=== PATIENT | female | born 1945 | race Caucasian/White ===

== ENCOUNTER 2016-09-19 15:59 | Emergency (ER) | payer SELFPAY ==
--- NOTE | ~2016-09-19 | CR63 ---
[facility] A Service of [facility] & [facility] RADIOLOGY TEXT RESULTS PATIENT: CON ALANIZ LOCATION: CFTX : 44 UNIT #: [id number] AGE: [address]: JUANITA MARTÍNEZ SEX: F ORDER DR: [id number] [facility] [address] [place], [place] [address] [id number] E MR#: [id number] Acc #: [id number] NAME: CON ALANIZ. : 1945 SEX: F STUDY DATE/TIME: 09/19/2016 17:36 UNIT: [facility] ROOM: STUDY DESCRIPTION: CR Chest 2 View Attending Physician: Juanita Martínez Aprn Ordering Physician: Juanita Martínez Aprn Primary Care Physician: Carrillo Salomon Aprn MEDICAL IMAGING REPORT This report is preliminary unless electronic signature is present EXAM Two views of the chest COMPARISON March 05, 2015, March 27, 2015 and July 10, [address] chest dated July 26, 2009. Portable chest dated July 25, 2009 as well as the lateral chest dated December 18, 2008. INDICATIONS 71-year-old female with right-sided chest pain and dyspnea since falling on August 18, 2016. FINDINGS Cardiomediastinal silhouette is stable. No evidence of pneumothorax, pleural effusion or acute airspace disease. There is minimal plate-like atelectasis in the left lung base. There is diffuse spondylosis of the thoracic spine. Multiple healed right-sided rib fractures are noted. These appear stable from March 2015. At the level of the tenth right lateral rib, there is questionable step off and a subacute fracture cannot be excluded. There is minimal blunting of the right costophrenic sulcus on the frontal view which does not persist on the lateral view. This may represent minimal trace pleural fluid, perhaps due to recent rib fracture. Large hiatal hernia is again noted, which is noted to displace the descending aorta posteriorly, better appreciated on CT of July 2009. IMPRESSION 1. Multiple healed right-sided rib fractures. There is question of acute or subacute fracture of the tenth right lateral rib near the level of the diaphragm. There is minimal increased blunting of the costophrenic sulcus in this location which may represent trace pleural fluid and/or atelectasis. There is minimal band-like atelectasis in the left lower lobe. [facility] A Service of [facility] RADIOLOGY TEXT RESULTS PATIENT: CON ALANIZ LOCATION: CFTX : 44 UNIT #: [id number] AGE: [address]: JUANITA MARTÍNEZ SEX: F ORDER DR: 2. Normal heart size. Large hiatal hernia again noted. Dictated by... Shawn Hoffmann M.D. THIS IS AN ELECTRONICALLY VERIFIED REPORT Shawn Hoffmann M.D. at 09/24/2016 8:54 PM BLM/pcl TD: 09/19/2016 22:09 JOB #: [id number] MEDICAL IMAGING REPORT Page 1 of 1 COPY
[~2016-09-19 15:59] MED LIST: ACETAMINOPHEN PO; ALLERGY10 M1 PO; ALPRAZOLAM; ALPRAZOLAM PO; AMITRYPTYLINE PO; ASPIRIN ENTERI325 M1 PO; BACTRIM DS TABL1 TA1 PO; BENICAR HCT 40-1 TAB PO; BENICAR PO; CELEXA PO; CIPRO PO; DARVOCET-N 1001 TAB PO; DESYREL100 MG PO; FLEXERIL10 MG PO; HEADACHE MED; HYDROCODON-ACE1 EACH PO; IBUPROFEN PO; LEXAPRO; LEXAPRO PO; NAPROSYN250 M1 PO; NEXIUM PO; OMEPRAZOLE40 MG PO; PERCOCET5/325 PO; PHENERGAN25 M1 PO; PRILOSEC PO; VICODIN ES 7.51 EACH PO; VICODIN PO; XANAX0.5 MG PO
== END 2016-09-19 19:51 | disposition home or self-care (01) ==
LOC: CED 15:59 → CFTX 15:59
DX: S22.31XA Fracture of one rib, right side, initial encounter for closed fracture (principal); F17.210 Nicotine dependence, cigarettes, uncomplicated; W17.89XA Other fall from one level to another, initial encounter; Y92.9 Unspecified place or not applicable
CPT/HCPCS: 71020; 94010; 99283